=== PATIENT | male | born 1975 | race African-American/Black ===

== ENCOUNTER 2021-10-19 11:41 | Inpatient (IN) | payer SELFPAY ==
[~2021-10-19] VITALS: Ht 195.6 cm; Wt 83.9 kg
[2021-10-19] MEDS ORDERED: ACETAMINOPHEN 500MG TABLET PO STA (11:48)
[2021-10-19] MEDS ORDERED: FENTANYL CITRATE/PF 50MCG/ML 2ML VIAL IV ONE (12:00)
[2021-10-19] MEDS ORDERED: TETANUS, DIPHTHERIA, PERTUSSIS VAC/PF 0.5ML (>10YR OLD) IM ONE (12:00)
[2021-10-19] MEDS ORDERED: CEFAZOLIN 1000MG PREMIX 50 ML IV ONE ×2 (12:00)
[2021-10-19 12:16] LABS: BASOPHILS % 1.2 % (0.0-2.0); EOSINOPHILS % 2.5 % (0.0-5.0); HEMATOCRIT. 38.4 % (42.0-52.0); HEMOGLOBIN. 12.4 g/dL (14.0-18.0); LYMPHOCYTES % 49.6 % (20.0-50.0); MEAN CORPUSCULAR HEMOGLOBIN 29.2 pg (28.0-32.0); MEAN CORPUSCULAR VOLUME 90.6 fL (80.0-94.0); MEAN PLATELET VOLUME 7.8 fl (7.4-10.4); MONOCYTES % 8.1 % (2.0-8.0); NEUTROPHILS % 38.6 % (40.0-76.0); PLATELET 299 x1000/uL (130-400); RED BLOOD CELL COUNT 4.23 mill/uL (4.7-6.1); RED CELL DISTRIBUTION WIDTH 13.9 % (11.6-14.6)
[2021-10-19 12:23] LABS: CHLORIDE 103 mEq/L (98-107)
[2021-10-19] MEDS ORDERED: MORPHINE SULFATE 4 MG/ML CPJ (NOT FOR IM USE) IV ONE (12:45)
[2021-10-19] MEDS ORDERED: MORPHINE SULFATE 4 MG/ML CPJ (NOT FOR IM USE) IV PRN (13:15)
[2021-10-19] MEDS ORDERED: NALOXONE HCL 0.4MG/ML VIAL IV PRN (14:45)
[2021-10-19] MEDS ORDERED: MORPHINE SULFATE 2 MG/ML CPJ (NOT FOR IM USE) IV PRN (14:45)
[2021-10-19 16:00] VITALS: BP 125/69
[2021-10-19] MEDS ORDERED: HYDROCODONE/ACETAMINOPHEN 10/325MG TABLET PO PRN (16:30)
[2021-10-19 18:20] VITALS: BP 125/69
[2021-10-19 19:43] VITALS: BP 126/72
== END 2021-10-19 19:48 | disposition left against medical advice (07) | DRG 384 ==
LOC: ER 12:16 → 6EST 14:06 → EDBEDREQ 14:36 → ENRESERV 15:15
PROVIDERS: ADMIT Internal Medicine; ATTEND Internal Medicine
DX: S71.131A Puncture wound without foreign body, right thigh, initial encounter (principal); F17.200 Nicotine dependence, unspecified, uncomplicated; W34.00XA Accidental discharge from unspecified firearms or gun, initial encounter; Y93.89 Activity, other specified; Y92.89 Other specified places as the place of occurrence of the external cause; Y99.8 Other external cause status
CPT/HCPCS: 36415; 71045; 72170; 73552; 80053; 83605; 85025; 86850; 86900; 90715; 93005; 99285; J0690; J2270; J3010